=== PATIENT | female | born 1980 | race Caucasian/White ===

== ENCOUNTER 2017-10-15 14:02 | Emergency (ER) | payer MEDICAID ==
[~2017-10-15] VITALS: Ht 160 cm; Wt 109.0 kg
[2017-10-15 17:04] VITALS: BP 138/68
== END 2017-10-15 17:05 | disposition home or self-care (01) ==
LOC: ER 14:03
DX: O20.0 Threatened abortion (principal); Z3A.14 14 weeks gestation of pregnancy; Z56.0 Unemployment, unspecified
CPT/HCPCS: 36415; 76801; 84702; 86900; 86901; 99285